=== PATIENT | female | born 1975 | race Caucasian/White ===

== ENCOUNTER → 2017-07-05 | Day surgery (SDC) | payer OTHER ==
[~2017-07-05] MED LIST: ALBUTEROL20 ml INH; AZITHROMYCIN250 MG PO; BREO ELLIPTA I1 EACH INH; DESYREL300 MG PO; GABAPENTIN400 MG PO; LATUDA80 MG PO; PREDNISONE PO; ROBITUSSIN A-C S5 ML PO
--- NOTE | ~2017-07-05 | OR ---
Unit #: [id number] #: [id number] Patient: CARLA PORTILLO [id number] [address] [address] [id number] O MR#: [id number] NAME: CARLA PORTILLO ROOM: Date of Procedure: 07/05/2017 Admission Date: 07/05/2017 Surgeon: Noe Justice M.D. : 1975 Attending Physician: Noe Justice M.D. Primary Care Physician: [facility] OPERATIVE REPORT PROCEDURE PERFORMED Colonoscopy to cecum. INDICATIONS FOR PROCEDURE A 42-year-old female, whose brother with colon cancer, undergoing colonoscopy for evaluation. MEDICATIONS Monitored anesthesia. POSTOPERATIVE FINDINGS Colonoscopy completed to cecum. Prep was good. No polyps, masses, or colitis were seen. PLAN High-fiber diet. Repeat colonoscopy in 5 years. DESCRIPTION OF PROCEDURE The patient was explained of the procedure, risks, and benefits along with the risks and benefits of anesthesia. She was brought to the endoscopy room. Propofol anesthesia was given. Rectal exam was done, which was normal. Colonoscope was lubricated, passed up the rectum, advanced under direct vision all the way to the cecum. Cecum was identified by ileocecal valve and appendiceal orifice. There was a little foreign body about 3 cm which was most likely a piece of meat. It was freely mobile and not attached. No polyps, masses, or colitis were seen. Mucosa was normal and healthy. I retroflexed in the rectum, small hemorrhoids seen. Gently, the scope was pulled out. She tolerated it well. Dictated by... Susana Paige/tom TD: 07/05/2017 15:25 JOB #: [id number] Unit #: [id number] #: [id number] Patient: CARLA PORTILLO OPERATIVE REPORT Page 1 of 1 X Noe Justice MD PROCEDURE OPERATIVE NOTE
== END | disposition home or self-care (01) ==
LOC: COPS 06-14 10:30
PROVIDERS: Internal Medicine
PROC: 0DJD8ZZ Inspection of Lower Intestinal Tract, Via Natural or Artificial Opening Endoscopic (ICD-10-PCS; principal; 2017-07-05 13:00)
DX: Z12.11 Encounter for screening for malignant neoplasm of colon (principal); Z80.0 Family history of malignant neoplasm of digestive organs; K64.9 Unspecified hemorrhoids; K59.00 Constipation, unspecified; R19.7 Diarrhea, unspecified; J44.9 Chronic obstructive pulmonary disease, unspecified; F17.200 Nicotine dependence, unspecified, uncomplicated; Z79.899 Other long term (current) drug therapy; Z98.890 Other specified postprocedural states
CPT/HCPCS: 84703; J2250